=== PATIENT | female | born 1965 | race Hispanic/Latino ===

== ENCOUNTER 2022-05-16 06:15 | Emergency (ER) | payer BC, OTHER ==
[2022-05-16] MEDS ORDERED: Ondansetron PF 4 MG/2 ML Vial ONE (06:40)
[2022-05-16 06:50] LABS: #Lymphocytes 0.3 thou/uL (1.20-3.40); #Monocytes 0.4 thou/uL (0.11-0.59); #Neutrophils 10.7 thou/uL (1.40-6.50); %Basophils 0.2 % (0.0-1.0); %Eosinophils 0.2 % (0.0-10.0); %Lymphocytes 2.8 % (21.0-51.0); %Monocytes 3.1 % (0.0-10.0); %Neutrophils 93.7 % (42.0-75.0); Hemoglobin 14.3 g/dL (12.0-16.0); Mean Corpuscular HGB CONC 33.9 g/dL (32.0-36.0); Mean Corpuscular Hemoglobin 31.3 pg (27.0-31.0); Mean Corpuscular Volume 92.4 fL (78.0-98.0); Mean Platelet Volume 7.1 fL (7.4-10.4); Platelet Count 441 thou/uL (130-400); RBC Distribution Width 11.6 % (11.5-14.5); Red Blood Cell (RBC) Count 4.56 mill/uL (4.20-5.40); White Blood Cell (WBC) Count 11.4 thou/uL (4.8-10.8)
[2022-05-16 07:09] LABS: ALT (SGPT) 39 U/L (8-55); AST (SGOT) 24 U/L (5-34); Albumin 4.5 g/dL (3.5-5.0); Alkaline Phosphatase 155 U/L (40-110); Anion Gap 16 mmol/L (10-20); BUN (Urea Nitrogen) 23 mg/dL (9.8-20.1); Bilirubin, Total 1.1 mg/dL (0.2-1.2); Calc. Creatinine Clearance 0 mL/min (70-130); Calcium 10.2 mg/dL (7.8-10.44); Carbon Dioxide 21 mmol/L (22-29); Chloride 106 mmol/L (98-107); Estimated GFR 92; Globulin 2.7 g/dL (2.4-3.5); Glucose 163 mg/dL (70-105); Protein, Total 7.2 g/dL (6.0-8.3); Sodium 139 mmol/L (136-145)
[2022-05-16] MEDS ORDERED: Lidocaine Viscous Sol 2% 15 ml UD Cup ONE (07:26)
[2022-05-16] MEDS ORDERED: Mag-Al 1200 mg/1200 mg/30 ML UDCUP ONE ×3 (07:26→07:27)
[2022-05-16 07:42] LABS: Lipase 13 U/L (8-78); Magnesium 1.6 mg/dL (1.6-2.6)
[2022-05-16 09:45] LABS: Bilirubin Negative (Negative); Blood, Urine Negative (Negative); Clarity Clear (Clear); Glucose, Urine (Dipstick) Normal (Negative); Ketone, Urine Negative (Negative); Leukocyte Negative Leu/uL (Negative); Nitrite Negative (Negative); Protein, Urine (Dipstick) Negative (Neg-Trace); Specific Gravity, Urine 1.023 (1.002-1.036); Urobilinogen Normal mg/dL (Less than 2); pH, Urine 5.5 (5.0-9.0)
[2022-05-16] MEDS ORDERED: Ondansetron ODT 4 MG TAB ONE (10:33)
== END 2022-05-16 10:35 | disposition home or self-care (01) ==
LOC: ERS 06:15
DX: E05.80 Other thyrotoxicosis without thyrotoxic crisis or storm (principal); A08.4 Viral intestinal infection, unspecified; E10.9 Type 1 diabetes mellitus without complications
CPT/HCPCS: 36415; 71045; 80053; 81003; 82010; 83605; 83690; 83735; 84443; 85025; 87040; 87086; 93005; 96361; 96374; J2405; Q0162